=== PATIENT | female | born 1955 | race Caucasian/White ===

== ENCOUNTER 2020-07-17 18:40 | Emergency (ER) | payer SELFPAY ==
[~2020-07-17] VITALS: Ht 152.4 cm; Wt 70.5 kg
[2020-07-17 18:47] VITALS: TEMP 97.2
[2020-07-17 19:53] LABS: BASO % 0.6 % (0.0-2.0); EOS # 0.2 (0.0-0.7); GRAN % 48.2 % (42.2-75.2); HEMATOCRIT 37.3 % (37.0-47.0); HEMOGLOBIN 12.9 g/dl (12.5-16.0); LYMPH # 2.6 (1.2-3.4); LYMPH % 40.6 % (20.0-51.0); MEAN CELL VOLUME 85 fl (80.0-100.0); MEAN CORPUSCULAR HEMOGLOBIN 29 pg (27.0-31.0); MEAN CORPUSCULAR HGB CONC 35 g/dl (33.0-37.0); MEAN PLATELET VOLUME 10.3 fl (7.4-10.4); MONO # 0.5 (0.1-0.6); MONO % 7.1 % (1.7-9.3); PLATELET COUNT 206 K/mm3 (130-400); REDCELL DISTRIBUTION WIDTH-CV 12.2 % (11.5-14.5)
[2020-07-17 20:00] LABS: ALBUMIN 4.2 gm/dL (3.5-5.0); BILIRUBIN,TOTAL 0.8 mg/dL (0.0-1.0); CALCIUM 9.2 mg/dL (8.4-10.2); CREATININE, serum 0.4 (0.52-1.25); POTASSIUM 4.7 mmol/L (3.4-5.0); TOTAL PROTEIN 8.4 gm/dL (6.4-8.2)
[2020-07-17 20:01] LABS: BUDDING YEAST Present /hpf; MUCOUS Present /lpf; PH 7 (5-8); SQUAMOUS EPITHELIAL 0-2 /hpf; URINE APPEARANCE Hazy; URINE BACTERIA Rare /hpf; URINE BILIRUBIN Negative (NEGATIVE); URINE BLOOD Negative (NEGATIVE); URINE COLOR Yellow; URINE GLUCOSE 2+ (NEGATIVE); URINE KETONE Negative (NEGATIVE); URINE LEUKOCYTE ESTERASE 3+ (NEGATIVE); URINE NITRATE Negative (NEGATIVE); URINE PROTEIN(semi-quant) 2+ (NEGATIVE); URINE UROBILINOGEN Negative (NEGATIVE); URINE WBC >50 /hpf
[2020-07-17 20:06] LABS: COLLECTION METHOD CLEAN CATCH
[2020-07-17 20:11] LABS: TROPONIN-I 0.013 ng/mL (0.000-0.035)
[2020-07-17 20:15] LABS: ERYTHROCYTE SEDIMENTATION RATE 13 mm/hr (0-30)
[2020-07-17] MEDS ORDERED: CEPHALEXIN500 M1 PO (22:02)
[2020-07-17 22:10] VITALS: BP 138/68; PULSE 80
== END 2020-07-17 22:18 | disposition home or self-care (01) ==
LOC: COL.ER 18:40
PROVIDERS: Emergency Medicine
DX: R42 Dizziness and giddiness (principal); N39.0 Urinary tract infection, site not specified; I10 Essential (primary) hypertension; E11.9 Type 2 diabetes mellitus without complications; Z91.040 Latex allergy status; Z79.899 Other long term (current) drug therapy
CPT/HCPCS: J0696; J1100; J2405; J2765; J7030; Q9967

== ENCOUNTER 2020-08-13 19:21 | Emergency (ER) | payer SELFPAY ==
[~2020-08-13] VITALS: Ht 152.4 cm; Wt 70.0 kg
[~2020-08-13 19:21] MED LIST: CEPHALEXIN500 M1 PO
[2020-08-13 19:35] VITALS: TEMP 97.1
[2020-08-13 20:25] LABS: ALANINE AMINOTRANSFERASE 89 U/L (4-34); ALBUMIN 4.2 gm/dL (3.5-5.0); ALKALINE PHOSPHATASE 159 U/L (50-136); ANION GAP 6 mmol/L (7-16); AST,SGOT 94 U/L (15-37); BILIRUBIN,TOTAL 0.5 mg/dL (0.0-1.0); BLOOD UREA NITROGEN 12 mg/dL (7-17); CALCIUM 9.8 mg/dL (8.4-10.2); CARBON DIOXIDE 25 mmol/L (22-30); CHLORIDE 104 mmol/L (98-107); CREATININE, serum 0.56 (0.52-1.25); GLUCOSE 138 mg/dL (74-106); POTASSIUM 3.6 mmol/L (3.4-5.0); SODIUM 136 mmol/L (137-145); TOTAL PROTEIN 8.3 gm/dL (6.4-8.2)
[2020-08-13 20:26] LABS: BASO % 0.5 % (0.0-2.0); EOS # 0.2 (0.0-0.7); EOS % 2.7 % (0-4.0); GRAN # 3.4 (1.4-6.5); HEMATOCRIT 39.7 % (37.0-47.0); HEMOGLOBIN 13.4 g/dl (12.5-16.0); LYMPH # 3.4 (1.2-3.4); LYMPH % 45.2 % (20.0-51.0); MEAN CELL VOLUME 87 fl (80.0-100.0); MEAN CORPUSCULAR HEMOGLOBIN 29 pg (27.0-31.0); MEAN CORPUSCULAR HGB CONC 34 g/dl (33.0-37.0); MONO # 0.5 (0.1-0.6); MONO % 6.3 % (1.7-9.3); PLATELET COUNT 235 K/mm3 (130-400); RED BLOOD COUNT 4.58 M/mm3 (4.10-5.30); REDCELL DISTRIBUTION WIDTH-CV 12.5 % (11.5-14.5)
[2020-08-13 20:38] LABS: TROPONIN-I < 0.012 ng/mL (0.000-0.035)
[2020-08-13 20:49] LABS: COLLECTION METHOD CLEAN CATCH
[2020-08-13 21:12] LABS: PH 6 (5-8); SQUAMOUS EPITHELIAL None Seen /hpf; URINE APPEARANCE Clear; URINE BACTERIA Rare /hpf; URINE BILIRUBIN Negative (NEGATIVE); URINE BLOOD Negative (NEGATIVE); URINE COLOR Colorless; URINE GLUCOSE Negative (NEGATIVE); URINE KETONE Negative (NEGATIVE); URINE LEUKOCYTE ESTERASE 1+ (NEGATIVE); URINE NITRATE Negative (NEGATIVE); URINE PROTEIN(semi-quant) Negative (NEGATIVE); URINE RBC 0-2 /hpf; URINE UROBILINOGEN Negative (NEGATIVE)
[2020-08-13] MEDS ORDERED: OMNICEF 300MG300 MG PO (22:08)
[2020-08-13 22:35] VITALS: BP 143/82; PULSE 76
== END 2020-08-13 22:35 | disposition home or self-care (01) ==
LOC: COL.ER
PROVIDERS: Nurse Practitioner Primary Care
DX: N39.0 Urinary tract infection, site not specified (principal); R42 Dizziness and giddiness; I10 Essential (primary) hypertension; E11.9 Type 2 diabetes mellitus without complications; Z79.899 Other long term (current) drug therapy; Z79.84 Long term (current) use of oral hypoglycemic drugs
CPT/HCPCS: J0696; J7030

== ENCOUNTER 2020-11-28 05:06 | Emergency (ER) | payer BC ==
[~2020-11-28] VITALS: Ht 152.4 cm; Wt 68.2 kg
[~2020-11-28 05:06] MED LIST changes: +OMNICEF 300MG300 MG PO
[2020-11-28 05:14] VITALS: TEMP 98.3
[2020-11-28 05:28] LABS: BASO # 0.1 (0.0-0.2); BASO % 0.6 % (0.0-2.0); EOS # 0.2 (0.0-0.7); EOS % 2.7 % (0-4.0); GRAN # 3.7 (1.4-6.5); GRAN % 43.5 % (42.2-75.2); HEMATOCRIT 39.6 % (37.0-47.0); HEMOGLOBIN 13.6 g/dl (12.5-16.0); LYMPH % 47.2 % (20.0-51.0); MEAN CELL VOLUME 87 fl (80.0-100.0); MEAN CORPUSCULAR HEMOGLOBIN 30 pg (27.0-31.0); MEAN CORPUSCULAR HGB CONC 34 g/dl (33.0-37.0); MEAN PLATELET VOLUME 9.4 fl (7.4-10.4); MONO # 0.4 (0.1-0.6); MONO % 4.8 % (1.7-9.3); PLATELET COUNT 252 K/mm3 (130-400); RED BLOOD COUNT 4.55 M/mm3 (4.10-5.30); REDCELL DISTRIBUTION WIDTH-CV 12.5 % (11.5-14.5)
[2020-11-28 05:49] LABS: ALBUMIN 3.7 gm/dL (3.4-4.8); BILIRUBIN,TOTAL 0.4 mg/dL (0.2-1.2); CALCIUM 9.6 mg/dL (8.4-10.2); CREATININE, serum 0.76 mg/dL (0.57-1.11); POTASSIUM 3.7 mmol/L (3.5-4.5); TOTAL PROTEIN 8.1 gm/dL (6.2-8.1)
[2020-11-28 05:55] LABS: TROPONIN-I 0.01 ng/mL (0.00-0.033)
[2020-11-28] MEDS ORDERED: ANTIVERT 25MG25 MG PO (07:33)
[2020-11-28 07:34] VITALS: BP 120/77; PULSE 72
== END 2020-11-28 07:35 | disposition home or self-care (01) ==
LOC: COL.ER 05:06
PROVIDERS: Emergency Medicine
DX: R42 Dizziness and giddiness (principal); R51.9 Headache, unspecified; R11.2 Nausea with vomiting, unspecified; I10 Essential (primary) hypertension; E11.9 Type 2 diabetes mellitus without complications
CPT/HCPCS: J1100; J1200; J2405; J2765; J7030

== ENCOUNTER → 2020-12-10 | Outpatient (CLI) | payer BC ==
[~2020-12-10] MED LIST changes: +ANTIVERT 25MG25 MG PO
== END ==
LOC: COL.RAD 07:43
DX: Z90.5 Acquired absence of kidney (principal)
CPT/HCPCS: Q9967

== ENCOUNTER 2021-06-19 08:58 | Day surgery (SDC) | payer BC ==
[~2021-06-19] VITALS: Ht 152.4 cm; Wt 67.7 kg
[2021-06-19 09:36] VITALS: BP 134/82; PULSE 65; TEMP 97.8
[2021-06-19] MEDS ORDERED: PRIL40 PO (09:44)
[2021-06-19] MEDS ORDERED: NORVASC 5MG5 MG/TAB PO (09:44)
[2021-06-19] MEDS ORDERED: TOUJEO300 U/ML SQ (10:03)
[2021-06-19 11:30] VITALS: BP 114/67; PULSE 65; TEMP 96.7
--- NOTE | 2021-06-19 11:30 | NUR ---
Pt arrived from procedure drowsy but oriented. Yamilex RN assisted with ambulating from cart to chair. Vitals obtained. Room report obtained. Apple sauce and ice water provided. Call mann is within reach on side table. is in to speak with pt.
[2021-06-19 11:45] VITALS: BP 13/69; PULSE 60
--- NOTE | 2021-06-19 11:45 | NUR ---
Pt is eating her applesauce and continues to sip water. Pt denies nausea and expressed desire to be discharged. Call mann remains within reach.
[2021-06-19 12:00] VITALS: BP 117/75; PULSE 63
--- NOTE | 2021-06-19 12:00 | NUR ---
Vitals obtained. Pt has finished her applesauce. IV discontinued. Catheter tip intact and pressure bandage applied. NO redness or swelling noted. DC instructions and educational material was reviewed with the pt, who verbalized understanding and signed the related paperwork. Pt denied having any questions or conerns. Pt denied needing assistance changing into personal clothes. Call mann remains within reach if needed.
--- NOTE | 2021-06-19 12:20 | NUR ---
Pt dismissed from endo via wheelchair to the pt entrence by Wendie LOPEZ and transferred into the care of her son, who had the DC packet, pt's personal belongings and is present to drive.
== END 2021-06-19 12:20 | disposition home or self-care (01) ==
LOC: SDCO 08:58
DX: Z12.11 Encounter for screening for malignant neoplasm of colon (principal); D12.2 Benign neoplasm of ascending colon; D12.4 Benign neoplasm of descending colon; K62.89 Other specified diseases of anus and rectum; K29.50 Unspecified chronic gastritis without bleeding
CPT/HCPCS: J2405; J2704; J7030

== ENCOUNTER 2022-06-29 10:44 | Emergency (ER) | payer BC ==
[~2022-06-29] VITALS: Ht 152.4 cm; Wt 67.3 kg
[~2022-06-29 10:44] MED LIST changes: +FLEXERIL 1010 MG/TAB PO; +NORVASC 5MG5 MG/TAB PO; +PRIL40 PO; +TOUJEO300 U/ML SQ
[2022-06-29 11:27] LABS: BASO % 0.6 % (0.0-2.0); EOS # 0.2 K/mm3 (0.0-0.7); EOS % 2.8 % (0.0-4.0); HEMATOCRIT 38.4 % (37.0-47.0); HEMOGLOBIN 12.6 g/dl (12.5-16.0); LYMPH # 2.2 K/mm3 (1.2-3.4); LYMPH % 32.2 % (20.0-51.0); MEAN CELL VOLUME 90 fl (80.0-100.0); MEAN CORPUSCULAR HEMOGLOBIN 30 pg (27-31); MEAN CORPUSCULAR HGB CONC 33 g/dl (33.0-37.0); MEAN PLATELET VOLUME 9.3 fl (7.4-10.4); MONO # 0.3 K/mm3 (0.1-0.6); MONO % 4.3 % (1.7-9.3); PLATELET COUNT 257 K/mm3 (130-400); RED BLOOD COUNT 4.25 M/mm3 (4.10-5.30); REDCELL DISTRIBUTION WIDTH-CV 12.9 % (11.5-14.5)
[2022-06-29 11:45] LABS: ALANINE AMINOTRANSFERASE 45 U/L (0-55); ALBUMIN 3.9 gm/dL (3.4-4.8); ALKALINE PHOSPHATASE 93 U/L (40-150); ANION GAP 8 mmol/L (7-16); AST,SGOT 40 U/L (5-34); BILIRUBIN,TOTAL 0.5 mg/dL (0.2-1.2); BLOOD UREA NITROGEN 16 mg/dL (10-20); CALCIUM 9.2 mg/dL (8.4-10.2); CARBON DIOXIDE 23 mmol/L (23-31); CHLORIDE 108 mmol/L (98-107); GLUCOSE 129 mg/dL (70-99); SODIUM 139 mmol/L (136-145); TOTAL PROTEIN 7.7 gm/dL (6.2-8.1)
[2022-06-29 11:53] LABS: TROPONIN-I < 0.010 ng/mL (0.00-0.033)
[2022-06-29 12:42] VITALS: BP 126/72; PULSE 66
== END 2022-06-29 12:30 | disposition home or self-care (01) ==
LOC: COL.ER 10:44
PROVIDERS: Physician Assistant
DX: R07.89 Other chest pain (principal); E11.9 Type 2 diabetes mellitus without complications; Z79.4 Long term (current) use of insulin
CPT/HCPCS: J1885